=== PATIENT | male | born 1980 | race American Indian/Alaskan Native ===

== ENCOUNTER 2017-05-11 11:23 | Emergency (ER) | payer OTHER ==
--- NOTE | 2017-05-11 12:32 | XRay Report ---
ROUTINE CHEST, TWO VIEWS: HISTORY: Shortness of breath. The trachea, heart, mediastinal contour, lung warner and bony thorax are unremarkable. IMPRESSION: No acute cardiopulmonary process identified
[2017-05-11 12:35] LABS: Basophils % (Auto) 0.8 % (0.0-1.8); Eosinophils % (Auto) 3.9 % (0.0-4.3); Hematocrit 43.3 % (35.5-45.6); Hemoglobin 14.7 gm/dl (11.8-15.2); Mean Corpuscular HGB Conc 34 % (32-34); Mean Corpuscular Hemoglobin 28 pg (28-32); Mean Corpuscular Volume 84 fl (84-94); Platelet Count 424 K/mm3 (140-440); Red Blood Count 5.17 M/mm3 (3.65-5.03); Red Cell Distribution Width 12.6 % (13.2-15.2); White Blood Count 11.8 K/mm3 (4.5-11.0)
[2017-05-11 13:17] LABS: Anion Gap 23 mmol/L; BUN/Creatinine Ratio 15; Blood Urea Nitrogen 12 mg/dL (9-20); Calcium 9.4 mg/dL (8.4-10.2); Carbon Dioxide 22 mmol/L (22-30); Chloride 97.1 mmol/L (98-107); Glucose 92 mg/dL (75-100); Potassium 4.7 mmol/L (3.6-5.0); Sodium 137 mmol/L (137-145)
--- NOTE | 2017-05-11 15:43 | Emergency Department Report ---
ED General Adult HPI - General Chief complaint: Dyspnea/Respdistress Stated complaint: SOB Time Seen by Provider: 05/11/17 15:32 Source: patient Mode of arrival: Ambulatory Limitations: No Limitations - History of Present Illness Initial comments: Patient states that he is almost out of his inhaler. Apparently has a history of asthma. He states he was treated for pneumonia one year ago. He just had outpatient treatment and never followed up to get a repeat x-ray. He has no known history of chronic lung disease. He has not been recently traveling. Complains of shortness of breath associated with cough productive of a yellow light or green sputum over the last week. He states whenever he has a cold. "Goes into pneumonia". He has not had any recent fever or chills however. He does not complain of chest pain leg pain or swelling. He's had no recent travel. -: week(s) Severity scale (0 -10): 0 Consistency: intermittent (intermittent cough and shortness of breath) Improves with: none Worsens with: none Associated Symptoms: denies other symptoms, cough, shortness of breath Treatments Prior to Arrival: none - Related Data Previous Rx's Medication Instructions Recorded Last Taken Type ALBUTEROL Inhaler [ProAir HFA 2 puff IH QID PRN #1 inhalation 05/11/17 Unknown Rx Inhaler] Levofloxacin [Levaquin] 750 mg PO QDAY #9 tablet 05/11/17 Unknown Rx predniSONE [Deltasone] 40 mg PO QDAY #10 tab 05/11/17 Unknown Rx Allergies Allergy/AdvReac Type Severity Reaction Status Date / Time No Known Allergies Allergy Unverified 05/11/17 11:27 ED Review of Systems ROS: Stated complaint: SOB Other details as noted in HPI Constitutional: denies: chills, fever Eyes: denies: eye pain, eye discharge, vision change ENT: denies: ear pain, throat pain Respiratory: cough, shortness of breath. denies: wheezing Cardiovascular: denies: chest pain, palpitations Endocrine: no symptoms reported Gastrointestinal: denies: abdominal pain, nausea, diarrhea Genitourinary: denies: urgency, dysuria Musculoskeletal: denies: back pain, joint swelling, arthralgia Skin: denies: rash, lesions Neurological: denies: headache, weakness, paresthesias Psychiatric: denies: anxiety, depression Hematological/Lymphatic: denies: easy bleeding, easy bruising ED Past Medical Hx - Past Medical History Previous Medical History?: Yes Hx Hypertension: Yes Hx Asthma: Yes - Surgical History Past Surgical History?: Yes Additional Surgical History: Right knee - Social History Smoking Status: Never Smoker Substance Use Type: None - Medications Home Medications: Home Medications Medication Instructions Recorded Confirmed Last Taken Type ALBUTEROL Inhaler [ProAir HFA 2 puff IH QID PRN #1 inhalation 05/11/17 Unknown Rx Inhaler] Levofloxacin [Levaquin] 750 mg PO QDAY #9 tablet 05/11/17 Unknown Rx predniSONE [Deltasone] 40 mg PO QDAY #10 tab 05/11/17 Unknown Rx ED Physical Exam - General Limitations: No Limitations General appearance: alert, in no apparent distress - Head Head exam: Present: atraumatic, normocephalic - Eye Eye exam: Present: normal appearance, PERRL, EOMI. Absent: scleral icterus - ENT ENT exam: Present: mucous membranes moist - Neck Neck exam: Present: normal inspection. Absent: tenderness, meningismus - Respiratory Respiratory exam: Present: decreased breath sounds (breath sounds are somewhat distant with slight end expiratory wheeze). Absent: respiratory distress, accessory muscle use - Cardiovascular Cardiovascular Exam: Present: normal rhythm, tachycardia (low 100s). Absent: systolic murmur, diastolic murmur, rubs, gallop - GI/Abdominal GI/Abdominal exam: Present: soft, normal bowel sounds. Absent: distended, tenderness, guarding, rebound, rigid - Rectal Rectal exam: Present: deferred - Extremities Exam Extremities exam: Present: normal inspection - Back Exam Back exam: Present: normal inspection - Neurological Exam Neurological exam: Present: alert, oriented X3, CN II-XII intact. Absent: motor sensory deficit - Psychiatric Psychiatric exam: Present: normal affect, normal mood - Skin Skin exam: Present: warm, dry, intact, normal color. Absent: rash ED Course Vital Signs 05/11/17 05/11/17 05/11/17 11:27 13:37 13:39 Temperature 98.2 F 98.4 F Pulse Rate 123 H 106 H Pulse Rate [ Anterior] Respiratory 20 16 16 Rate Respiratory Rate [Anterior] Blood Pressure 177/102 Blood Pressure 149/89 [Left] O2 Sat by Pulse 96 98 98 Oximetry 05/11/17 05/11/1717 16:45 16:54 17:22 Temperature Pulse Rate 104 H Pulse Rate [ 94 H 88 Anterior] Respiratory 16 Rate Respiratory 22 19 Rate [Anterior] Blood Pressure Blood Pressure 154/93 [Left] O2 Sat by Pulse 97 Oximetry - Reevaluation(s) Reevaluation #1: The patient was given a DuoNeb and Solu-Medrol Levaquin and liter of fluids. Stated that his breathing was remarkably improved after DuoNeb. He felt ready for discharge. No submental complaints. Patient's chest x-ray was read as completely normal by the radiologist. I found this somewhat surprising because there were bilateral increased lower lobe markings send them certainly chronic but the chest was remarkably abnormal for 36-year-old man. He will be referred to pulmonary for follow-up. He will be continued on an oral antibiotic as well as an inhaler. He will be given a short course of prednisone. He does appear to have chronic lung disease and possibly pneumonia. His pulse ox was well maintained. He is appropriate for outpatient management. 05/11/17 18:05 05/11/17 18:07 ED Medical Decision Making - Lab Data Result diagrams: 05/11/17 12:01 05/11/17 Unknown Laboratory Results - last 24 hr 05/11/17 05/11/17 12:01 Unknown WBC 11.8 H RBC 5.17 H Hgb 14.7 Hct 43.3 MCV 84 MCH 28 MCHC 34 RDW 12.6 L Plt Count 424 Lymph % (Auto) 11.2 L [place] % (Auto) 7.7 H Eos % (Auto) 3.9 Baso % (Auto) 0.8 Lymph # 1.3 [place] # 0.9 H Eos # 0.5 H Baso # 0.1 Seg Neutrophils % 76.4 H Seg Neutrophils # 9.0 H Sodium 137 Potassium 4.7 Chloride 97.1 L Carbon Dioxide 22 Anion Gap 23 BUN 12 Creatinine 0.8 Estimated GFR > 60 BUN/Creatinine Ratio 15 Glucose 92 Calcium 9.4 Troponin T < 0.010 - EKG Data -: EKG Interpreted by Me EKG shows normal: sinus rhythm, axis, intervals, QRS complexes, ST-T waves Rate: normal - EKG Data Interpretation: no acute changes - Radiology Data Radiology results: report reviewed interpreted by me: Assessment the patient has bilateral increased lower lobe markings with evidence of old fibrosis or scarring. I can't rule out an acute infiltrate. Radiologist does not comment on these findings. Critical care attestation.: If time is entered above; I have spent that time in minutes in the direct care of this critically ill patient, excluding procedure time. ED Disposition Clinical Impression: COPD exacerbation Acute bronchitis Qualifiers: Bronchitis organism: unspecified organism Qualified Code(s): J20.9 - Acute bronchitis, unspecified Disposition: DC- TO HOME OR SELFCARE Is pt being admited?: No Does the pt Need Aspirin: No Condition: Stable Instructions: Chronic Bronchitis (ED), Acute Bronchitis (ED) Additional Instructions: I would recommend that he follow-up with a lung specialist but certainly a primary care doctor. Dr. Davenport it is a lung specialist. Dr. Swanson is an assistant general manager. [facility] is a primary care location. Rx as directed. Return any acute change or worsening symptoms. Prescriptions: ALBUTEROL Inhaler [ProAir HFA Inhaler] 2 puff IH QID PRN #1 inhalation PRN Reason: Shortness Of Breath Levofloxacin [Levaquin] 750 mg PO QDAY #9 tablet predniSONE [Deltasone] 40 mg PO QDAY #10 tab Referrals: PRIMARY CARE, [Primary Care Provider] - 3-5 Days Time of Disposition: 18:10
[2017-05-11] MEDS ORDERED: DUONEB *Not for PRN Use IH ONE (16:32)
[2017-05-11] MEDS ORDERED: NACL 0.9% 1000 ML 1,000 ML IV ONE ×2 (16:40→18:00)
[2017-05-11] MEDS ORDERED: LEVAQUIN 750MG/150ML 750 MG/150 ML BAG IV ONE (16:41)
[2017-05-11 17:19] LABS: INR 0.99 (0.87-1.13)
[2017-05-11 17:20] LABS: Partial Thromboplastin Time 30.9 Sec. (24.2-36.6)
[2017-05-11 17:24] LABS: Urine Drugs of Abuse Note Disclamer
[2017-05-11 17:31] LABS: Bilirubin,Urine NEG (Negative); Blood,Urine NEG (Negative); Ketones,Urine TR mg/dL (Negative); Leukocyte Esterase,Urine NEG (Negative); Nitrite,Urine NEG (Negative); Protein,Urine <15 mg/dL mg/dL (Negative); Urobilinogen,Urine < 2.0 mg/dL (<2.0)
[2017-05-11 17:34] LABS: Alanine Aminotransferase 29 units/L (7-56); Albumin 3.8 g/dL (3.9-5); Albumin/Globulin Ratio 1.1 %; Alkaline Phosphatase 81 units/L (35-129); Total Protein 7.4 g/dL (6.3-8.2)
[2017-05-11 17:48] LABS: Bilirubin,Direct < 0.2 mg/dL (0-0.2); Bilirubin,Indirect 0.2 mg/dL
[2017-05-11 18:53] VITALS: BP 139/78
== END 2017-05-11 18:54 | disposition home or self-care (01) ==
LOC: ED 11:23
DX: J44.1 Chronic obstructive pulmonary disease with (acute) exacerbation (principal); J20.9 Acute bronchitis, unspecified; I10 Essential (primary) hypertension
CPT/HCPCS: 36415; 71020; 80048; 80074; 80307; 81001; 82140; 83880; 84484; 85025; 85610; 85730; 87040; 93005; 93010; 94640; 96365; 96375; 99284; J1956; J2930; J7030